=== PATIENT | male | born 1935 | race Hispanic/Latino ===

== ENCOUNTER 2019-01-14 23:54 | Inpatient (IN) | payer MEDICARE ==
[~2019-01-14] VITALS: Ht 172.7 cm; Wt 68.8 kg
[2019-01-14] MEDS ORDERED: ALBUTEROL SULFATE 0.083% 2.5 MG/3 ML INH IH ONE (23:56)
[2019-01-15] MEDS ORDERED: FUROSEMIDE 10 MG/ML 4ML VIAL ONE (00:05)
[2019-01-15 00:25] LABS: BASOPHILS % (AUTO) 0.9 % (0.0-5.0); EOSINOPHILS % (AUTO) 0.5 % (0.0-8.0); LYMPHOCYTES % (AUTO) 12.1 % (21.0-51.0); MEAN CORPUSCULAR HGB CONC 33.4 g/dL (32.0-36.0); MEAN CORPUSCULAR VOLUME 90.1 fL (79-99); MONOCYTES % (AUTO) 4.6 % (3.0-13.0); NEUTROPHILS % (AUTO) 81.9 % (40.0-77.0); PLATELET COUNT (AUTO) 127 K/uL (130-400); RED BLOOD CELL COUNT(AUTO) 4.55 MIL/uL (4.50-6.20); RED CELL DISTRIBUTION WIDTH 17.9 % (11.0-15.5); WHITE BLOOD COUNT (AUTO) 9.8 K/uL (4.8-10.8)
[2019-01-15 00:26] LABS: ABG BASE EXCESS -1.4 mmol/L (-2.0-3.0); ABG HCO3 21.3 mmol/L (21.0-28.0); ABG OXYGEN SATURATION 97.5 % (95.0-99.0); ABG PCO2 31 mmHg (35-48)
[2019-01-15 00:34] LABS: CREATININE 2.3 mg/dL (0.5-1.5)
[2019-01-15 00:36] LABS: INR 1.05 (0.85-1.15); PARTIAL THROMBOPLASTIN TIME 24.3 SEC (26.3-35.5)
[2019-01-15] MEDS ORDERED: ALBUTEROL SULFATE 0.083% 2.5 MG/3 ML INH IH ONE (00:37)
[2019-01-15 01:04] LABS: B-TYPE NATRIURETIC PEPTIDE 1290 pg/mL (0-100)
[2019-01-15 01:10] LABS: APPEARANCE,URINE Clear (CLEAR); BILIRUBIN,URINE Negative (NEGATIVE); COLOR,URINE Yellow (YELLOW); GLUCOSE, URINE (UA) Negative (NEGATIVE); KETONES,URINE Negative (NEGATIVE); LEUKOCYTE ESTERASE ,URINE Negative (NEGATIVE); NITRATE,URINE Negative (NEGATIVE); OCCULT BLOOD,URINE Negative (NEGATIVE); PROTEIN,URINE Negative (NEGATIVE)
[2019-01-15] MEDS ORDERED: NITROGLYCERIN 1GM/1 INCH PACKET TD ONE (01:29)
[2019-01-15 01:32] LABS: ALBUMIN 3.4 g/dL (3.5-5.0); TOTAL PROTEIN, SERUM 7.5 g/dL (6.0-8.3)
[2019-01-15] MEDS ORDERED: ZOSYN 3.375GM+NS 50ML 50 ML IV ONE (01:44)
[2019-01-15] MEDS ORDERED: MORPHINE SULFATE 2 MG/ML 1ML SYG IV PRN (03:45)
[2019-01-15] MEDS ORDERED: VANCOMYCIN PROTOCOL PER PHARMACY IV PRN (03:45)
[2019-01-15] MEDS ORDERED: ACETAMINOPHEN 325 MG TAB PO PRN ×2 (03:45)
[2019-01-15] MEDS ORDERED: PHARMACY COMMUNICATION MISC SCH (03:45)
[2019-01-15] MEDS ORDERED: ZOSYN 3.375GM+NS 50ML 50 ML IV SCH (05:00)
[2019-01-15 05:42] LABS: BASOPHILS % (AUTO) 0.5 % (0.0-5.0); HEMATOCRIT 33.2 % (42-54); LYMPHOCYTES % (AUTO) 8.4 % (21.0-51.0); MEAN CORPUSCULAR HEMOGLOBIN 30.4 pg (27.0-33.0); MEAN CORPUSCULAR HGB CONC 34.3 g/dL (32.0-36.0); MEAN CORPUSCULAR VOLUME 88.9 fL (79-99); MONOCYTES % (AUTO) 3.8 % (3.0-13.0); NEUTROPHILS % (AUTO) 87.3 % (40.0-77.0); PLATELET COUNT (AUTO) 116 K/uL (130-400); RED BLOOD CELL COUNT(AUTO) 3.73 MIL/uL (4.50-6.20); RED CELL DISTRIBUTION WIDTH 16.8 % (11.0-15.5)
[2019-01-15 05:59] LABS: CREATININE 2.3 mg/dL (0.5-1.5); POTASSIUM 3.4 mmol/L (3.5-5.1)
--- NOTE | 2019-01-15 06:00 | NUR ---
patient arrived to room accompanied by family. patient's clear upper lobes and diminished in bases. no cough noted at present. rt to connect patient to by pap. call andre within reach. patient and family orientated to room
[2019-01-15 06:05] LABS: ALBUMIN 2.8 g/dL (3.5-5.0); BILIRUBIN,TOTAL 1.3 mg/dL (0.2-1.0); TOTAL PROTEIN, SERUM 6.6 g/dL (6.0-8.3)
[2019-01-15 06:08] LABS: PLATELET MORPHOLOGY COMMENT LARGE PLTS PRESENT
[2019-01-15 06:34] VITALS: BP 100/64
[2019-01-15] MEDS ORDERED: FLUT1BLS3 IH (06:43)
[2019-01-15] MEDS ORDERED: ASPI-555 PO (06:43)
[2019-01-15] MEDS ORDERED: HYDRALAZINE HCL 20 MG/ML VIAL IM PRN (07:00)
[2019-01-15] MEDS ORDERED: FURO40TA5 PO (07:16)
[2019-01-15] MEDS ORDERED: ATOR10 PO (07:16)
[2019-01-15] MEDS ORDERED: CARV12.511 PO (07:16)
[2019-01-15] MEDS ORDERED: LISI2.5T2 PO (07:16)
[2019-01-15] MEDS ORDERED: CROM40SP12 NS (07:16)
[2019-01-15] MEDS ORDERED: TAMS-1 PO (07:16)
[2019-01-15] MEDS ORDERED: MIRT15TA6 PO (07:16)
[2019-01-15] MEDS ORDERED: CLOP75TA32 PO (07:16)
[2019-01-15] MEDS: INSULIN HUMULIN R 100 UNIT/ML 3ML SQ SCH ×5 (07:30→21:32)
[2019-01-15] MEDS: VANCOMYCIN 1GM+NS 250ML 250 ML IV SCH (08:00)
[2019-01-15] MEDS ORDERED: POTASSIUM CHLORIDE 20MEQ/100ML 100 ML IV PRN (08:15)
[2019-01-15] MEDS ORDERED: POTASSIUM CHLORIDE 10% ELIXIR 20 MEQ/15 ML UDCUP PO PRN (08:15)
[2019-01-15] MEDS ORDERED: LIDOCAINE HCL-MPF 1% 2ML VIAL IV PRN (08:15)
[2019-01-15] MEDS ORDERED: POTASSIUM CHLORIDE 20 MEQ ERTAB PO PRN (08:15)
[2019-01-15 08:30] LABS: ABG BASE EXCESS -0.4 mmol/L (-2.0-3.0); ABG HCO3 22.4 mmol/L (21.0-28.0); ABG OXYGEN SATURATION 99.1 % (95.0-99.0); ABG PCO2 32 mmHg (35-48)
[2019-01-15] MEDS: FAMOTIDINE/PF 20 MG/2 ML VIAL IV SCH (09:00)
[2019-01-15] MEDS ORDERED: FAMOTIDINE/PF 20 MG/2 ML VIAL IV SCH (09:00)
[2019-01-15] MEDS: POTASSIUM CHLORIDE 20 MEQ ERTAB PO SCH ×2 (09:00→21:11)
[2019-01-15] MEDS: FUROSEMIDE 10 MG/ML 2ML VIAL IV SCH ×2 (09:00→21:11)
[2019-01-15] MEDS: ENOXAPARIN SODIUM 30 MG/0.3 ML SQ SCH (09:00)
[2019-01-15] MEDS: ZOSYN 3.375GM+NS 50ML 50 ML IV SCH ×3 (10:00→21:11)
[2019-01-15 12:00] VITALS: BP 106/49
[2019-01-15] MEDS ORDERED: METHYLPREDNISOLONE SOD SUCC 40MG/ML 1ML ONE (12:31)
[2019-01-15] MEDS: IPRATROPIUM/ALBUTEROL SULFATE 3 ML SOLUTION IH SCH ×3 (13:17→23:06)
[2019-01-15] MEDS: ACETYLCYSTEINE 20% 200MG/ML 4ML VIAL IH SCH ×3 (13:17→23:06)
--- NOTE | 2019-01-15 14:00 | NUR ---
cm note met with patient and states resides at home with spouse, pt lives with spouse, neeta jaramillo, pt uses walker, wc, O2 at homecontinueous, and nebulizer, has some home health nurse going unable to recall name of agency. was in hospital in november 2018, in [place], per son, wants to know how to be able to transfer to [facility].. they were here to visit family, and came via private vehicle, informed pt and son and family, that if transfer to [facility] is not for higher level of care, then they would be responsible for the transport cost, also that we would need to get [employer] quotes, as per mds not higher level of care at present. and care can be provided at present hospital. informed that they can verify with their insurance if they have any coverage for the transport, but unable to verify today due to weekend.also informed pt must be medically stable to move to other facility. son verbalizes understanding. per nurse, dr Goldstein was here to round on pt and informed that he recommended he stay here for a couple of days first.
[2019-01-15] MEDS: METHYLPREDNISOLONE SOD SUCC 40MG/ML 1ML IVP SCH ×2 (15:30→23:52)
[2019-01-15 16:00] VITALS: BP 112/42
[2019-01-15 20:02] VITALS: BP 94/47
[2019-01-15] MEDS: INSULIN GLARGINE 100 UNITS/ML 10 ML VIAL SQ SCH ×2 (21:00→21:32)
[2019-01-15] MEDS: ATORVASTATIN CALCIUM 20 MG TABLET PO SCH (21:11)
[2019-01-15] MEDS: MIRTAZAPINE 15 MG TABLET PO SCH (21:12)
[2019-01-15 23:56] VITALS: BP 111/60
[2019-01-16 03:59] VITALS: BP 122/61
[2019-01-16 04:46] LABS: ALBUMIN 2.6 g/dL (3.5-5.0); CREATININE 2.2 mg/dL (0.5-1.5); PHOSPHORUS 2.3 mg/dL (2.5-4.9); POTASSIUM 4.2 mmol/L (3.5-5.1)
[2019-01-16] MEDS: ZOSYN 3.375GM+NS 50ML 50 ML IV SCH ×3 (05:47→22:42)
[2019-01-16] MEDS: METHYLPREDNISOLONE SOD SUCC 40MG/ML 1ML IVP SCH (05:47)
[2019-01-16] MEDS: INSULIN HUMULIN R 100 UNIT/ML 3ML SQ SCH ×4 (05:48→21:00)
[2019-01-16] MEDS: ACETYLCYSTEINE 20% 200MG/ML 4ML VIAL IH SCH ×4 (06:29→23:30)
[2019-01-16] MEDS: IPRATROPIUM/ALBUTEROL SULFATE 3 ML SOLUTION IH SCH ×4 (06:29→23:29)
[2019-01-16 07:08] VITALS: BP 122/61
[2019-01-16 08:21] LABS: BILIRUBIN,DIRECT 0.3 mg/dL (0.0-0.3); BILIRUBIN,TOTAL 1.2 mg/dL (0.2-1.0); TOTAL PROTEIN, SERUM 6.5 g/dL (6.0-8.3)
[2019-01-16] MEDS: LISINOPRIL 2.5 MG TABLET PO SCH (09:21)
[2019-01-16] MEDS: CLOPIDOGREL BISULFATE 75 MG TAB PO SCH (09:21)
[2019-01-16] MEDS: ASPIRIN 81 MG EC TAB PO SCH (09:22)
[2019-01-16] MEDS: POTASSIUM CHLORIDE 20 MEQ ERTAB PO SCH ×2 (09:22→22:36)
[2019-01-16] MEDS: FUROSEMIDE 10 MG/ML 2ML VIAL IV SCH ×2 (09:23→22:37)
[2019-01-16] MEDS: NEUTRA-PHOS PACKET 1 EACH PO SCH ×2 (09:23→14:12)
[2019-01-16] MEDS: FAMOTIDINE/PF 20 MG/2 ML VIAL IV SCH (09:23)
[2019-01-16] MEDS: CARVEDILOL 12.5 MG TABLET PO SCH ×2 (09:26→17:23)
[2019-01-16] MEDS: ENOXAPARIN SODIUM 30 MG/0.3 ML SQ SCH (09:27)
[2019-01-16 10:53] VITALS: BP 118/75
[2019-01-16] MEDS: INSULIN LISPRO 100 UNIT/ML 3ML SQ SCH ×3 (12:36→22:50)
[2019-01-16 15:40] VITALS: BP 125/64
--- NOTE | 2019-01-16 19:30 | NUR ---
PM NOTE Patient resting in bed, no s/s of distress. Patient on nasal canula 2L, family at bedside. Denies pain at this time. Per day shift report and assessment patient has no IV, zosyn to be given at 2100. Will assess for possible IV site. On telemetry patient is v-paced at 66. Call light within reach. Instructed to call for assistance, verbalized understanding.
[2019-01-16 19:36] VITALS: BP 128/68
[2019-01-16] MEDS: MIRTAZAPINE 15 MG TABLET PO SCH (22:36)
[2019-01-16] MEDS: ATORVASTATIN CALCIUM 20 MG TABLET PO SCH (22:36)
[2019-01-16] MEDS: INSULIN GLARGINE 100 UNITS/ML 10 ML VIAL SQ SCH (22:49)
[2019-01-16 23:00] VITALS: BP_SYST 113; BP_SYST 118; BP_DIAS 52; BP_DIAS 62
[2019-01-17] MEDS: NEUTRA-PHOS PACKET 1 EACH PO SCH (00:04)
[2019-01-17 03:56] LABS: BASOPHILS % (AUTO) 0.2 % (0.0-5.0); HEMATOCRIT 31.8 % (42-54); LYMPHOCYTES % (AUTO) 11.5 % (21.0-51.0); MEAN CORPUSCULAR HGB CONC 33.9 g/dL (32.0-36.0); MEAN CORPUSCULAR VOLUME 88.7 fL (79-99); MONOCYTES % (AUTO) 6.8 % (3.0-13.0); NEUTROPHILS % (AUTO) 81.5 % (40.0-77.0); PLATELET COUNT (AUTO) 113 K/uL (130-400); RED BLOOD CELL COUNT(AUTO) 3.59 MIL/uL (4.50-6.20); WHITE BLOOD COUNT (AUTO) 8.8 K/uL (4.8-10.8)
[2019-01-17 03:58] LABS: ABG BASE EXCESS -1.4 mmol/L (-2.0-3.0); ABG HCO3 22.3 mmol/L (21.0-28.0); ABG PCO2 35 mmHg (35-48)
[2019-01-17 04:00] VITALS: BP 110/56
[2019-01-17 04:03] LABS: B-TYPE NATRIURETIC PEPTIDE 1240 pg/mL (0-100)
[2019-01-17 04:10] LABS: CREATININE 2.3 mg/dL (0.5-1.5); PHOSPHORUS 3.7 mg/dL (2.5-4.9); POTASSIUM 4.4 mmol/L (3.5-5.1)
[2019-01-17] MEDS: ZOSYN 3.375GM+NS 50ML 50 ML IV SCH ×3 (05:34→20:58)
[2019-01-17] MEDS: IPRATROPIUM/ALBUTEROL SULFATE 3 ML SOLUTION IH SCH ×5 (06:48→23:15)
[2019-01-17] MEDS: ACETYLCYSTEINE 20% 200MG/ML 4ML VIAL IH SCH ×4 (06:48→23:15)
[2019-01-17] MEDS: INSULIN HUMULIN R 100 UNIT/ML 3ML SQ SCH ×4 (06:56→21:14)
[2019-01-17 07:00] VITALS: BP 115/58
[2019-01-17] MEDS ORDERED: PREDNISONE 20 MG TABLET PO SCH (09:00)
[2019-01-17] MEDS: VANCOMYCIN 1GM+NS 250ML 250 ML IV SCH (09:41)
[2019-01-17] MEDS: FUROSEMIDE 10 MG/ML 2ML VIAL IV SCH ×3 (09:41→20:57)
[2019-01-17] MEDS: ENOXAPARIN SODIUM 30 MG/0.3 ML SQ SCH (09:42)
[2019-01-17] MEDS: LISINOPRIL 2.5 MG TABLET PO SCH (09:42)
[2019-01-17] MEDS: POTASSIUM CHLORIDE 20 MEQ ERTAB PO SCH ×2 (09:45→20:57)
[2019-01-17] MEDS: CLOPIDOGREL BISULFATE 75 MG TAB PO SCH (09:45)
[2019-01-17] MEDS: ASPIRIN 81 MG EC TAB PO SCH (09:45)
[2019-01-17] MEDS: CARVEDILOL 12.5 MG TABLET PO SCH ×2 (09:46→15:59)
[2019-01-17] MEDS: FAMOTIDINE/PF 20 MG/2 ML VIAL IV SCH (09:46)
[2019-01-17 11:02] VITALS: BP 109/56
[2019-01-17] MEDS ORDERED: FUROSEMIDE 10 MG/ML 4ML VIAL IV SCH (11:15)
[2019-01-17] MEDS: INSULIN LISPRO 100 UNIT/ML 3ML SQ SCH ×2 (11:33→16:07)
[2019-01-17] MEDS ORDERED: METHYLPREDNISOLONE SOD SUCC 125MG/2ML VIAL ONE (14:51)
[2019-01-17 15:23] VITALS: BP 112/52
--- NOTE | 2019-01-17 15:53 | NUR ---
DC PLAN FROM CM REPORT. PATIENT LIVES WITH SPOUSE. INDEPENDENT ABLE TO PERFORM ADL'S. PATIENT HAS WALKER, WHEEL CHAIR, O2 AND NEBS. CAME DOWN TO VISIT FROM [place]. FAMILY WANTS TO RETURN. MD TRIED TO TAPER STEROIDS WAS NOT ABLE TO WEAN WILL NEED A LONG TAPER. BENCHMARK AGREED. BOTH MDS SPOKE TO FAMILY. SAID WILL NEED AT LEAST A WEEK OF STEROIDS FOR PATIENT TO IMPROVE. FAMILY ASKED ABOUT SENDING PATIENT TO [place] EXPLAINED THAT I CAN SEND REFERRAL BUT THEY WOULD HAVE TO MAKE ARRANGEMENTS FOR TRANSPORT. INSURANCE WILL NOT TRANSPORT LONG DISTANCE IF THERE IS A CLOSER FACILITY. GAVE OKAY FOR REFERRAL TO [facility]. LET REP KNOW PACKET GIVEN. Addendum: 01/17/19 at 1559 by YARED SANTOS RN CM Amended: Links added.
[2019-01-17] MEDS: METHYLPREDNISOLONE SOD SUCC 125MG/2ML VIAL IVP SCH ×2 (15:59→20:57)
[2019-01-17] MEDS ORDERED: SODIUM CHLORIDE 3% FOR INHALATION 4 ML/AMP VIAL.NEB IH ONE (17:56)
[2019-01-17] MEDS: BUDESONIDE 0.5 MG/2 ML INH IH SCH (18:48)
[2019-01-17 19:00] VITALS: BP 108/50
--- NOTE | 2019-01-17 20:03 | NUR ---
PM NOTE PATIENT RESTING IN BED, ALERT & ORIENTED X3. DENIES PAIN AT THIS TIME. PER FAMILY, PATIENT HAS BEEN MORE TIRED THAN HE WAS YESTERDAY. FAMILY STATES PATIENT GETS SHORT OF BREATH WHEN AMBULATING. PATIENT IN NO DISTRESS AT THIS TIME. HE IS ON 2L NASAL CANULA. ON TELEMETRY PATIENT IS PACED AT 61. CALL LIGHT WITHIN REACH. INSTRUCTED TO CALL FOR ASSISTANCE, VERBALIZED UNDERSTANDING. FAMILY AT BEDSIDE. SIDE RAILS UP X2.
[2019-01-17] MEDS: MIRTAZAPINE 15 MG TABLET PO SCH (20:56)
[2019-01-17] MEDS: ATORVASTATIN CALCIUM 20 MG TABLET PO SCH (20:56)
[2019-01-17] MEDS: INSULIN GLARGINE 100 UNITS/ML 10 ML VIAL SQ SCH (21:15)
[2019-01-17 23:00] VITALS: BP 102/42
[2019-01-18] MEDS: METHYLPREDNISOLONE SOD SUCC 125MG/2ML VIAL IVP SCH ×4 (03:40→20:20)
[2019-01-18 04:00] VITALS: BP 107/60
[2019-01-18 04:19] LABS: BASOPHILS % (AUTO) 0.1 % (0.0-5.0); HEMATOCRIT 33.8 % (42-54); LYMPHOCYTES % (AUTO) 13.2 % (21.0-51.0); MEAN CORPUSCULAR HEMOGLOBIN 29.9 pg (27.0-33.0); MEAN CORPUSCULAR HGB CONC 33.7 g/dL (32.0-36.0); MEAN CORPUSCULAR VOLUME 88.7 fL (79-99); MONOCYTES % (AUTO) 1.7 % (3.0-13.0); NUCLEATED RED BLOOD CELLS 0.1 % (0.0-0.19); PLATELET COUNT (AUTO) 114 K/uL (130-400); RED BLOOD CELL COUNT(AUTO) 3.81 MIL/uL (4.50-6.20); RED CELL DISTRIBUTION WIDTH 17.2 % (11.0-15.5); WHITE BLOOD COUNT (AUTO) 5.1 K/uL (4.8-10.8)
[2019-01-18 04:29] LABS: CREATININE 2.6 mg/dL (0.5-1.5); POTASSIUM 4.1 mmol/L (3.5-5.1)
[2019-01-18 04:44] LABS: B-TYPE NATRIURETIC PEPTIDE 1080 pg/mL (0-100)
[2019-01-18] MEDS: ZOSYN 3.375GM+NS 50ML 50 ML IV SCH ×3 (04:47→20:08)
[2019-01-18] MEDS: IPRATROPIUM/ALBUTEROL SULFATE 3 ML SOLUTION IH SCH ×7 (06:00→23:39)
[2019-01-18] MEDS: INSULIN LISPRO 100 UNIT/ML 3ML SQ SCH ×3 (06:23→17:28)
[2019-01-18] MEDS: INSULIN HUMULIN R 100 UNIT/ML 3ML SQ SCH ×4 (06:24→20:26)
[2019-01-18] MEDS: ACETYLCYSTEINE 20% 200MG/ML 4ML VIAL IH SCH ×4 (06:41→23:39)
[2019-01-18] MEDS: BUDESONIDE 0.5 MG/2 ML INH IH SCH ×2 (06:41→18:34)
[2019-01-18 07:31] VITALS: BP 127/63
[2019-01-18 09:21] LABS: HEMATOCRIT 35.1 % (42-54); MEAN CORPUSCULAR HEMOGLOBIN 30.2 pg (27.0-33.0); MEAN CORPUSCULAR HGB CONC 33.5 g/dL (32.0-36.0); NUCLEATED RED BLOOD CELLS 0.1 % (0.0-0.19); PLATELET COUNT (AUTO) 110 K/uL (130-400); RED CELL DISTRIBUTION WIDTH 17.1 % (11.0-15.5); WHITE BLOOD COUNT (AUTO) 6.3 K/uL (4.8-10.8)
[2019-01-18] MEDS: CARVEDILOL 12.5 MG TABLET PO SCH ×2 (09:28→16:58)
[2019-01-18] MEDS: LISINOPRIL 2.5 MG TABLET PO SCH (09:28)
[2019-01-18 09:29] LABS: CREATININE 2.5 mg/dL (0.5-1.5); POTASSIUM 4.3 mmol/L (3.5-5.1)
[2019-01-18] MEDS: CLOPIDOGREL BISULFATE 75 MG TAB PO SCH (09:29)
[2019-01-18] MEDS: ASPIRIN 81 MG EC TAB PO SCH (09:29)
[2019-01-18] MEDS: POTASSIUM CHLORIDE 20 MEQ ERTAB PO SCH ×2 (09:29→20:09)
[2019-01-18] MEDS: FUROSEMIDE 10 MG/ML 2ML VIAL IV SCH ×3 (09:30→20:17)
[2019-01-18] MEDS: FAMOTIDINE/PF 20 MG/2 ML VIAL IV SCH (09:30)
[2019-01-18] MEDS: ENOXAPARIN SODIUM 30 MG/0.3 ML SQ SCH (09:30)
[2019-01-18 12:00] VITALS: BP 113/57
[2019-01-18 15:21] VITALS: BP 126/64
[2019-01-18 19:00] VITALS: BP_SYST 118; BP_SYST 142; BP_DIAS 64; BP_DIAS 69
[2019-01-18] MEDS: MIRTAZAPINE 15 MG TABLET PO SCH (20:08)
[2019-01-18] MEDS: ATORVASTATIN CALCIUM 20 MG TABLET PO SCH (20:09)
[2019-01-18] MEDS: INSULIN GLARGINE 100 UNITS/ML 10 ML VIAL SQ SCH (20:16)
[2019-01-18 23:46] VITALS: BP 142/69
[2019-01-19] MEDS: METHYLPREDNISOLONE SOD SUCC 125MG/2ML VIAL IVP SCH ×4 (02:09→21:55)
[2019-01-19 04:00] VITALS: BP 91/56
[2019-01-19 04:06] LABS: HEMATOCRIT 35.1 % (42-54); MEAN CORPUSCULAR HEMOGLOBIN 29.5 pg (27.0-33.0); MEAN CORPUSCULAR HGB CONC 32.9 g/dL (32.0-36.0); MEAN CORPUSCULAR VOLUME 89.5 fL (79-99); PLATELET COUNT (AUTO) 101 K/uL (130-400); RED BLOOD CELL COUNT(AUTO) 3.92 MIL/uL (4.50-6.20); RED CELL DISTRIBUTION WIDTH 16.5 % (11.0-15.5); WHITE BLOOD COUNT (AUTO) 6.9 K/uL (4.8-10.8)
[2019-01-19 04:15] LABS: CREATININE 2.5 mg/dL (0.5-1.5); POTASSIUM 4.2 mmol/L (3.5-5.1)
[2019-01-19] MEDS: FUROSEMIDE 10 MG/ML 2ML VIAL IV SCH ×3 (05:13→21:54)
[2019-01-19] MEDS: ZOSYN 3.375GM+NS 50ML 50 ML IV SCH ×3 (05:14→21:54)
[2019-01-19 07:24] VITALS: BP 117/67
[2019-01-19] MEDS: BUDESONIDE 0.5 MG/2 ML INH IH SCH ×2 (07:24→18:53)
[2019-01-19] MEDS: IPRATROPIUM/ALBUTEROL SULFATE 3 ML SOLUTION IH SCH ×5 (07:24→23:53)
[2019-01-19] MEDS: ACETYLCYSTEINE 20% 200MG/ML 4ML VIAL IH SCH ×4 (07:25→23:53)
[2019-01-19] MEDS ORDERED: PREDNISONE 10 MG TABLET PO SCH (09:00)
[2019-01-19] MEDS: ENOXAPARIN SODIUM 30 MG/0.3 ML SQ SCH (09:00)
[2019-01-19] MEDS: FAMOTIDINE/PF 20 MG/2 ML VIAL IV SCH (09:22)
[2019-01-19] MEDS: ASPIRIN 81 MG EC TAB PO SCH (09:38)
[2019-01-19] MEDS: LISINOPRIL 2.5 MG TABLET PO SCH (09:38)
[2019-01-19] MEDS: CLOPIDOGREL BISULFATE 75 MG TAB PO SCH (09:39)
[2019-01-19] MEDS: CARVEDILOL 12.5 MG TABLET PO SCH ×2 (09:39→17:00)
[2019-01-19] MEDS: POTASSIUM CHLORIDE 20 MEQ ERTAB PO SCH ×2 (09:40→21:55)
[2019-01-19] MEDS: VANCOMYCIN 1GM+NS 250ML 250 ML IV SCH (09:40)
[2019-01-19] MEDS: INSULIN HUMULIN R 100 UNIT/ML 3ML SQ SCH ×4 (09:54→22:08)
[2019-01-19] MEDS: INSULIN LISPRO 100 UNIT/ML 3ML SQ SCH ×4 (09:55→17:22)
[2019-01-19 11:09] VITALS: BP 93/52
[2019-01-19] MEDS ORDERED: SODIUM CHLORIDE 0.9% 250 ML IV ONE (13:07)
[2019-01-19 15:13] VITALS: BP 123/59
--- NOTE | 2019-01-19 17:25 | NUR ---
BLOOD SUGARS Patient has been having elevated blood sugars in the 300s, 400s. Nurse Practitioner Mandi Kemp was updated during rounds and is aware. She spoke to family and to patient and emphasized no food from outside. Family verbalized understanding.
[2019-01-19 19:39] VITALS: BP 112/61
--- NOTE | 2019-01-19 20:06 | NUR ---
ASSESSMENT PATIENT IS RESTING IN BED. ALERT AND ORIENTED X4. FAMILY IS AT BEDSIDE. NO COMPLAINTS OF PAIN. NO SIGNS OF DISTRESS. NO SHORTNESS OF BREATH. PATIENT IS ON 02 @2L. CALL LIGHT IS WITHIN REACH. BEDSIDE AT WITHIN REACH. NO QUESTIONS, CONCERNS, OR NEEDS AT THIS TIME.
[2019-01-19] MEDS: ATORVASTATIN CALCIUM 20 MG TABLET PO SCH (21:55)
[2019-01-19] MEDS: MIRTAZAPINE 15 MG TABLET PO SCH (21:55)
[2019-01-19] MEDS: INSULIN GLARGINE 100 UNITS/ML 10 ML VIAL SQ SCH (22:06)
[2019-01-19 23:21] VITALS: BP 133/71
--- NOTE | 2019-01-20 | NUR ---
ASSESSMENT PATIENT IS RESTING IN BED. FAMILY IS AT BEDSIDE. NO COMPLAINTS OF PAIN. NO SIGNS OF DISTRESS. NO SHORTNESS OF BREATH. CALL LIGHT, BEDSIDE TABLE WITHIN REACH. NO QUESTIONS, CONCERNS, OR NEEDS AT THIS TIME.
[2019-01-20] MEDS: METHYLPREDNISOLONE SOD SUCC 125MG/2ML VIAL IVP SCH ×4 (03:29→20:54)
[2019-01-20 03:56] VITALS: BP 121/69
[2019-01-20 04:00] LABS: HEMATOCRIT 36.4 % (42-54); MEAN CORPUSCULAR HEMOGLOBIN 30.1 pg (27.0-33.0); MEAN CORPUSCULAR HGB CONC 33.8 g/dL (32.0-36.0); PLATELET COUNT (AUTO) 123 K/uL (130-400); RED BLOOD CELL COUNT(AUTO) 4.09 MIL/uL (4.50-6.20); RED CELL DISTRIBUTION WIDTH 16.4 % (11.0-15.5); WHITE BLOOD COUNT (AUTO) 8.6 K/uL (4.8-10.8)
[2019-01-20 04:06] LABS: CREATININE 2.4 mg/dL (0.5-1.5); POTASSIUM 3.9 mmol/L (3.5-5.1)
--- NOTE | 2019-01-20 05:41 | NUR ---
ASSESSMENT PATIENT IS RESTING IN BED. FAMILY CONTINUES AT BEDSIDE. NO COMPLAINTS OF PAIN. NO SIGNS OF DISTRESS. NO SHORTNESS OF BREATH. PATIENT IS VOIDING VIA URINAL WITH NO COMPLAINTS. PATIENTS CALL LIGHT IS WITHIN REACH. NO NEEDS VOICED AT THIS TIME.
[2019-01-20] MEDS: FUROSEMIDE 10 MG/ML 2ML VIAL IV SCH (06:27)
[2019-01-20] MEDS: INSULIN HUMULIN R 100 UNIT/ML 3ML SQ SCH ×3 (06:27→21:14)
[2019-01-20] MEDS: ZOSYN 3.375GM+NS 50ML 50 ML IV SCH ×3 (06:27→20:53)
[2019-01-20] MEDS: INSULIN LISPRO 100 UNIT/ML 3ML SQ SCH ×3 (06:28→17:13)
[2019-01-20 07:05] VITALS: BP 112/56
[2019-01-20] MEDS: ACETYLCYSTEINE 20% 200MG/ML 4ML VIAL IH SCH ×4 (07:07→23:31)
[2019-01-20] MEDS: BUDESONIDE 0.5 MG/2 ML INH IH SCH ×2 (07:08→19:00)
[2019-01-20] MEDS: IPRATROPIUM/ALBUTEROL SULFATE 3 ML SOLUTION IH SCH ×4 (07:08→23:31)
[2019-01-20] MEDS: ASPIRIN 81 MG EC TAB PO SCH (08:55)
[2019-01-20] MEDS: CARVEDILOL 12.5 MG TABLET PO SCH ×2 (08:55→17:05)
[2019-01-20] MEDS: LISINOPRIL 2.5 MG TABLET PO SCH (08:56)
[2019-01-20] MEDS: CLOPIDOGREL BISULFATE 75 MG TAB PO SCH (08:56)
[2019-01-20] MEDS: FAMOTIDINE/PF 20 MG/2 ML VIAL IV SCH (08:56)
[2019-01-20] MEDS: ENOXAPARIN SODIUM 30 MG/0.3 ML SQ SCH (08:57)
[2019-01-20] MEDS: POTASSIUM CHLORIDE 20 MEQ ERTAB PO SCH ×2 (08:57→20:54)
[2019-01-20 11:10] VITALS: BP 103/54
--- NOTE | 2019-01-20 14:16 | NUR ---
RD NOTIFICATION RD CONSULTS DUE TO LOS X 5. DIET: HEART HEALTHY. PO INTAKE 75% AND HAS GOOD APPETITE PER FAMILY. NO DIFFICULTIES CHEWING OR SWALLOWING. LBM: 01/18 PER FAMILY. RECOMMENDATIONS: ADD RENAL NON-DIALYSIS AND FLUID RESTRICTION TO DIET ORDER MONITOR LABS AND PO INTAKE RD WILL CONTINUE TO FOLLOW UP Addendum: 01/20/19 at [address] Amended: Links added.
[2019-01-20 15:39] VITALS: BP 95/56
--- NOTE | 2019-01-20 19:29 | NUR ---
ASSESSMENT PATIENT IS RESTING IN BED. FAMILY AT BEDSIDE. ALERT AND ORIENTED X4. NO COMPLAINTS OF PAIN. NO SIGNS OF DISTRESS. NO SHORTNESS OF BREATH. CURRENTLY RUNNING A BREATHING TREATMENT WITH NO COMPLAINTS. CALL LIGHT, BEDSIDE TABLE, URINAL WITHIN REACH. NO QUESTIONS, CONCERNS, OR NEEDS AT THIS TIME. REINFORCED PATIENT TO CALL FOR ANY NEEDS.
[2019-01-20 20:06] VITALS: BP 112/58
[2019-01-20] MEDS: MIRTAZAPINE 15 MG TABLET PO SCH (20:54)
[2019-01-20] MEDS: ATORVASTATIN CALCIUM 20 MG TABLET PO SCH (20:54)
[2019-01-20] MEDS: INSULIN GLARGINE 100 UNITS/ML 10 ML VIAL SQ SCH (21:17)
[2019-01-21] VITALS (7 sets, daily range): BP systolic 97–127; BP diastolic 44–66
[2019-01-21] MEDS: METHYLPREDNISOLONE SOD SUCC 125MG/2ML VIAL IVP SCH ×3 (02:53→15:30)
[2019-01-21 03:54] LABS: HEMATOCRIT 36.3 % (42-54); MEAN CORPUSCULAR HEMOGLOBIN 29.5 pg (27.0-33.0); MEAN CORPUSCULAR HGB CONC 33.2 g/dL (32.0-36.0); MEAN CORPUSCULAR VOLUME 88.8 fL (79-99); PLATELET COUNT (AUTO) 117 K/uL (130-400); RED BLOOD CELL COUNT(AUTO) 4.09 MIL/uL (4.50-6.20); RED CELL DISTRIBUTION WIDTH 16.5 % (11.0-15.5); WHITE BLOOD COUNT (AUTO) 10.2 K/uL (4.8-10.8)
[2019-01-21 03:58] LABS: CREATININE 2.6 mg/dL (0.5-1.5); POTASSIUM 4.2 mmol/L (3.5-5.1)
[2019-01-21] MEDS: ACETYLCYSTEINE 20% 200MG/ML 4ML VIAL IH SCH ×4 (06:17→23:09)
[2019-01-21] MEDS: IPRATROPIUM/ALBUTEROL SULFATE 3 ML SOLUTION IH SCH ×4 (06:17→23:09)
[2019-01-21] MEDS: BUDESONIDE 0.5 MG/2 ML INH IH SCH ×2 (06:17→18:32)
[2019-01-21] MEDS: ZOSYN 3.375GM+NS 50ML 50 ML IV SCH ×3 (06:49→21:22)
[2019-01-21] MEDS: INSULIN HUMULIN R 100 UNIT/ML 3ML SQ SCH ×4 (06:49→21:34)
[2019-01-21] MEDS: INSULIN LISPRO 100 UNIT/ML 3ML SQ SCH ×3 (08:08→17:06)
[2019-01-21] MEDS: CARVEDILOL 12.5 MG TABLET PO SCH ×2 (08:24→17:03)
[2019-01-21] MEDS: VANCOMYCIN 1GM+NS 250ML 250 ML IV SCH (08:24)
[2019-01-21] MEDS ORDERED: FUROSEMIDE 40 MG TABLET PO SCH (09:00)
[2019-01-21] MEDS ORDERED: PREDNISONE 20 MG TABLET PO SCH (09:00)
[2019-01-21] MEDS: LISINOPRIL 2.5 MG TABLET PO SCH (10:11)
[2019-01-21] MEDS: ASPIRIN 81 MG EC TAB PO SCH (10:11)
[2019-01-21] MEDS: CLOPIDOGREL BISULFATE 75 MG TAB PO SCH (10:12)
[2019-01-21] MEDS: POTASSIUM CHLORIDE 20 MEQ ERTAB PO SCH ×2 (10:12→21:22)
[2019-01-21] MEDS: ENOXAPARIN SODIUM 30 MG/0.3 ML SQ SCH (10:13)
[2019-01-21] MEDS: FAMOTIDINE/PF 20 MG/2 ML VIAL IV SCH (10:14)
[2019-01-21] MEDS ORDERED: ACETYLCYSTEINE 10% 100MG/ML 4ML VIAL IH SCH (12:00)
[2019-01-21] MEDS: MIRTAZAPINE 15 MG TABLET PO SCH (21:21)
[2019-01-21] MEDS: ATORVASTATIN CALCIUM 20 MG TABLET PO SCH (21:22)
[2019-01-21] MEDS: INSULIN GLARGINE 100 UNITS/ML 10 ML VIAL SQ SCH (21:35)
[2019-01-22 00:35] VITALS: BP 122/50
[2019-01-22] MEDS: METHYLPREDNISOLONE SOD SUCC 125MG/2ML VIAL IVP SCH ×4 (01:00→21:42)
[2019-01-22 03:33] VITALS: BP 118/74
[2019-01-22 03:44] LABS: HEMATOCRIT 35.4 % (42-54); MEAN CORPUSCULAR HEMOGLOBIN 29.6 pg (27.0-33.0); MEAN CORPUSCULAR HGB CONC 33.4 g/dL (32.0-36.0); MEAN CORPUSCULAR VOLUME 88.5 fL (79-99); PLATELET COUNT (AUTO) 117 K/uL (130-400); RED CELL DISTRIBUTION WIDTH 16.8 % (11.0-15.5); WHITE BLOOD COUNT (AUTO) 8.5 K/uL (4.8-10.8)
[2019-01-22 03:53] LABS: CREATININE 2.1 mg/dL (0.5-1.5); POTASSIUM 4.4 mmol/L (3.5-5.1)
[2019-01-22] MEDS: ZOSYN 3.375GM+NS 50ML 50 ML IV SCH ×3 (06:12→21:44)
[2019-01-22] MEDS: IPRATROPIUM/ALBUTEROL SULFATE 3 ML SOLUTION IH SCH ×4 (06:33→23:35)
[2019-01-22] MEDS: ACETYLCYSTEINE 20% 200MG/ML 4ML VIAL IH SCH ×4 (06:33→23:35)
[2019-01-22] MEDS: BUDESONIDE 0.5 MG/2 ML INH IH SCH ×2 (06:33→18:23)
[2019-01-22] MEDS: INSULIN HUMULIN R 100 UNIT/ML 3ML SQ SCH ×4 (06:43→21:00)
[2019-01-22] MEDS: INSULIN LISPRO 100 UNIT/ML 3ML SQ SCH ×3 (07:11→17:17)
[2019-01-22 07:57] VITALS: BP 121/64
[2019-01-22] MEDS: CARVEDILOL 12.5 MG TABLET PO SCH ×2 (08:12→17:15)
[2019-01-22] MEDS: LISINOPRIL 2.5 MG TABLET PO SCH (08:44)
[2019-01-22] MEDS: ASPIRIN 81 MG EC TAB PO SCH (08:44)
[2019-01-22] MEDS: CLOPIDOGREL BISULFATE 75 MG TAB PO SCH (08:44)
[2019-01-22] MEDS: FAMOTIDINE/PF 20 MG/2 ML VIAL IV SCH (08:44)
[2019-01-22] MEDS: POTASSIUM CHLORIDE 20 MEQ ERTAB PO SCH ×2 (08:45→21:43)
[2019-01-22] MEDS: FUROSEMIDE 40 MG TABLET PO SCH (08:45)
[2019-01-22] MEDS: ENOXAPARIN SODIUM 30 MG/0.3 ML SQ SCH (08:46)
[2019-01-22 12:12] VITALS: BP 115/59
[2019-01-22 15:36] VITALS: BP 112/55
[2019-01-22 19:58] VITALS: BP 91/47
[2019-01-22] MEDS: INSULIN GLARGINE 100 UNITS/ML 10 ML VIAL SQ SCH (21:37)
[2019-01-22] MEDS: ATORVASTATIN CALCIUM 20 MG TABLET PO SCH (21:42)
[2019-01-22] MEDS: MIRTAZAPINE 15 MG TABLET PO SCH (21:42)
[2019-01-23] VITALS (7 sets, daily range): BP systolic 105–118; BP diastolic 50–62
[2019-01-23 04:21] LABS: HEMATOCRIT 37.1 % (42-54); MEAN CORPUSCULAR HEMOGLOBIN 29.4 pg (27.0-33.0); MEAN CORPUSCULAR HGB CONC 32.8 g/dL (32.0-36.0); MEAN CORPUSCULAR VOLUME 89.6 fL (79-99); PLATELET COUNT (AUTO) 110 K/uL (130-400); RED BLOOD CELL COUNT(AUTO) 4.15 MIL/uL (4.50-6.20); RED CELL DISTRIBUTION WIDTH 16.8 % (11.0-15.5); WHITE BLOOD COUNT (AUTO) 6.7 K/uL (4.8-10.8)
[2019-01-23 04:38] LABS: CREATININE 2.2 mg/dL (0.5-1.5); POTASSIUM 5.2 mmol/L (3.5-5.1)
[2019-01-23] MEDS: ZOSYN 3.375GM+NS 50ML 50 ML IV SCH ×3 (05:03→20:36)
[2019-01-23] MEDS: METHYLPREDNISOLONE SOD SUCC 125MG/2ML VIAL IVP SCH (07:10)
[2019-01-23] MEDS: INSULIN HUMULIN R 100 UNIT/ML 3ML SQ SCH ×4 (07:11→21:30)
[2019-01-23] MEDS: INSULIN LISPRO 100 UNIT/ML 3ML SQ SCH ×3 (07:12→17:41)
[2019-01-23] MEDS: IPRATROPIUM/ALBUTEROL SULFATE 3 ML SOLUTION IH SCH ×4 (07:23→23:13)
[2019-01-23] MEDS: ACETYLCYSTEINE 20% 200MG/ML 4ML VIAL IH SCH (07:24)
[2019-01-23 07:37] LABS: POTASSIUM 5.3 mmol/L (3.5-5.1)
[2019-01-23] MEDS: BUDESONIDE 0.5 MG/2 ML INH IH SCH ×2 (07:46→18:28)
[2019-01-23] MEDS: POTASSIUM CHLORIDE 20 MEQ ERTAB PO SCH ×2 (09:00→20:36)
[2019-01-23] MEDS ORDERED: PREDNISONE 10 MG TABLET PO SCH (09:00)
[2019-01-23] MEDS ORDERED: METHYLPREDNISOLONE SOD SUCC 40MG/ML 1ML ONE ×2 (11:13→16:51)
[2019-01-23] MEDS ORDERED: SODIUM CHLORIDE 0.9% 250 ML IV ONE (11:16)
[2019-01-23] MEDS: FAMOTIDINE/PF 20 MG/2 ML VIAL IV SCH (11:26)
[2019-01-23] MEDS: FUROSEMIDE 40 MG TABLET PO SCH (11:27)
[2019-01-23] MEDS: CARVEDILOL 12.5 MG TABLET PO SCH ×2 (11:27→17:39)
[2019-01-23] MEDS: ENOXAPARIN SODIUM 30 MG/0.3 ML SQ SCH (11:28)
[2019-01-23] MEDS: CLOPIDOGREL BISULFATE 75 MG TAB PO SCH (11:28)
[2019-01-23] MEDS: LISINOPRIL 2.5 MG TABLET PO SCH (11:28)
[2019-01-23] MEDS: VANCOMYCIN 1GM+NS 250ML 250 ML IV SCH (11:29)
[2019-01-23] MEDS: ASPIRIN 81 MG EC TAB PO SCH (11:34)
[2019-01-23] MEDS ORDERED: METHYLPREDNISOLONE SOD SUCC 125MG/2ML VIAL IVP SCH (12:00)
[2019-01-23] MEDS: METHYLPREDNISOLONE SOD SUCC 40MG/ML 1ML IVP SCH (17:42)
[2019-01-23] MEDS: ATORVASTATIN CALCIUM 20 MG TABLET PO SCH (20:36)
[2019-01-23] MEDS: MIRTAZAPINE 15 MG TABLET PO SCH (20:36)
[2019-01-23] MEDS: INSULIN GLARGINE 100 UNITS/ML 10 ML VIAL SQ SCH (21:29)
[2019-01-24] MEDS: METHYLPREDNISOLONE SOD SUCC 40MG/ML 1ML IVP SCH ×5 (00:55→21:44)
[2019-01-24 03:52] LABS: BASOPHILS % (AUTO) 0.2 % (0.0-5.0); HEMATOCRIT 35.8 % (42-54); LYMPHOCYTES % (AUTO) 8.1 % (21.0-51.0); MEAN CORPUSCULAR HEMOGLOBIN 29.6 pg (27.0-33.0); MEAN CORPUSCULAR HGB CONC 33.6 g/dL (32.0-36.0); MEAN CORPUSCULAR VOLUME 88.2 fL (79-99); NEUTROPHILS % (AUTO) 84.7 % (40.0-77.0); PLATELET COUNT (AUTO) 134 K/uL (130-400); RED BLOOD CELL COUNT(AUTO) 4.05 MIL/uL (4.50-6.20); RED CELL DISTRIBUTION WIDTH 16.5 % (11.0-15.5); WHITE BLOOD COUNT (AUTO) 9.9 K/uL (4.8-10.8)
[2019-01-24 03:53] VITALS: BP 126/61
[2019-01-24 04:01] LABS: CREATININE 2.1 mg/dL (0.5-1.5); POTASSIUM 4.5 mmol/L (3.5-5.1)
[2019-01-24] MEDS: ZOSYN 3.375GM+NS 50ML 50 ML IV SCH ×3 (04:57→20:05)
[2019-01-24] MEDS: INSULIN HUMULIN R 100 UNIT/ML 3ML SQ SCH ×4 (05:44→21:03)
[2019-01-24] MEDS: INSULIN LISPRO 100 UNIT/ML 3ML SQ SCH ×3 (06:15→17:49)
[2019-01-24 07:00] VITALS: BP 123/66
[2019-01-24] MEDS: BUDESONIDE 0.5 MG/2 ML INH IH SCH ×2 (07:12→18:13)
[2019-01-24] MEDS: IPRATROPIUM/ALBUTEROL SULFATE 3 ML SOLUTION IH SCH ×4 (07:12→23:32)
[2019-01-24] MEDS: POTASSIUM CHLORIDE 20 MEQ ERTAB PO SCH ×2 (09:00→20:06)
[2019-01-24] MEDS: ENOXAPARIN SODIUM 30 MG/0.3 ML SQ SCH (09:58)
[2019-01-24] MEDS: FUROSEMIDE 40 MG TABLET PO SCH (09:58)
[2019-01-24] MEDS: FAMOTIDINE/PF 20 MG/2 ML VIAL IV SCH (09:58)
[2019-01-24] MEDS: CLOPIDOGREL BISULFATE 75 MG TAB PO SCH (09:59)
[2019-01-24] MEDS: ASPIRIN 81 MG EC TAB PO SCH (09:59)
[2019-01-24] MEDS: LISINOPRIL 2.5 MG TABLET PO SCH (09:59)
[2019-01-24] MEDS: CARVEDILOL 12.5 MG TABLET PO SCH ×2 (09:59→17:50)
[2019-01-24 11:00] VITALS: BP 108/56
--- NOTE | 2019-01-24 13:32 | NUR ---
MILLICENT Plan Followed up on auth with Elyse (covering for Chelsi) with [employer]. Per Elyse, insurance has requested more information which has been sent this morning. CM to continue to follow. CD Addendum: 01/24/19 at 1333 by ROSCOE DOWELL CM Amended: Links added.
[2019-01-24 15:00] VITALS: BP 117/63
[2019-01-24 19:00] VITALS: BP 122/64
[2019-01-24] MEDS: MIRTAZAPINE 15 MG TABLET PO SCH (20:05)
[2019-01-24] MEDS: ATORVASTATIN CALCIUM 20 MG TABLET PO SCH (20:05)
[2019-01-24] MEDS: INSULIN GLARGINE 100 UNITS/ML 10 ML VIAL SQ SCH (21:04)
[2019-01-24 23:37] VITALS: BP 119/50
[2019-01-25 04:00] VITALS: BP 111/56
[2019-01-25] MEDS: METHYLPREDNISOLONE SOD SUCC 40MG/ML 1ML IVP SCH (05:00)
[2019-01-25] MEDS: ZOSYN 3.375GM+NS 50ML 50 ML IV SCH (05:00)
[2019-01-25] MEDS: IPRATROPIUM/ALBUTEROL SULFATE 3 ML SOLUTION IH SCH ×2 (06:06→11:12)
[2019-01-25] MEDS: INSULIN HUMULIN R 100 UNIT/ML 3ML SQ SCH ×2 (06:09→11:44)
[2019-01-25] MEDS: INSULIN LISPRO 100 UNIT/ML 3ML SQ SCH ×2 (06:10→11:44)
[2019-01-25] MEDS: BUDESONIDE 0.5 MG/2 ML INH IH SCH (06:19)
[2019-01-25] MEDS: ENOXAPARIN SODIUM 30 MG/0.3 ML SQ SCH (07:46)
[2019-01-25] MEDS: CLOPIDOGREL BISULFATE 75 MG TAB PO SCH (07:46)
[2019-01-25] MEDS: ASPIRIN 81 MG EC TAB PO SCH (07:46)
[2019-01-25] MEDS: FAMOTIDINE/PF 20 MG/2 ML VIAL IV SCH (07:46)
[2019-01-25] MEDS: CARVEDILOL 12.5 MG TABLET PO SCH (07:48)
[2019-01-25 07:50] VITALS: BP 134/64
[2019-01-25] MEDS: FUROSEMIDE 40 MG TABLET PO SCH (07:51)
[2019-01-25] MEDS: POTASSIUM CHLORIDE 20 MEQ ERTAB PO SCH (07:51)
[2019-01-25] MEDS: LISINOPRIL 2.5 MG TABLET PO SCH (07:52)
[2019-01-25] MEDS ORDERED: PREDNISONE 5 MG TABLET PO SCH (09:00)
[2019-01-25 11:40] VITALS: BP 106/59
[2019-01-25] MEDS ORDERED: IPRA3AMP24 IH (12:10)
--- NOTE | 2019-01-25 13:15 | NUR ---
Hansa CONTRERAS rounded and reviewed plan of care for the day. Ok patient to be discharged home. Discharge instructions/education, and medication were given to the son Nam. all questions were answered.
[2019-01-27] MEDS ORDERED: PREDNISONE 5 MG TABLET PO SCH (09:00)
== END 2019-01-25 13:25 | disposition home or self-care (01) | DRG 177 ==
LOC: EDH 23:54 → EDHIP 01-15 03:43 → 2DH 01-15 05:39
PROVIDERS: ADMIT Internal Medicine; ATTEND Internal Medicine
PROC: 5A09357 Assistance with Respiratory Ventilation, Less than 24 Consecutive Hours, Continuous Positive Airway Pressure (ICD-10-PCS; principal; 2019-01-15)
DX: J15.0 Pneumonia due to Klebsiella pneumoniae (principal); I50.43 Acute on chronic combined systolic (congestive) and diastolic (congestive) heart failure; J96.21 Acute and chronic respiratory failure with hypoxia; J44.0 Chronic obstructive pulmonary disease with (acute) lower respiratory infection; N17.9 Acute kidney failure, unspecified; N18.4 Chronic kidney disease, stage 4 (severe); I13.0 Hypertensive heart and chronic kidney disease with heart failure and stage 1 through stage 4 chronic kidney disease, or unspecified chronic kidney disease; J44.1 Chronic obstructive pulmonary disease with (acute) exacerbation; T50.2X5A Adverse effect of carbonic-anhydrase inhibitors, benzothiadiazides and other diuretics, initial encounter; E87.6 Hypokalemia; E87.5 Hyperkalemia; J15.212 Pneumonia due to Methicillin resistant Staphylococcus aureus; I25.10 Atherosclerotic heart disease of native coronary artery without angina pectoris; J84.10 Pulmonary fibrosis, unspecified; E87.8 Other disorders of electrolyte and fluid balance, not elsewhere classified; E11.22 Type 2 diabetes mellitus with diabetic chronic kidney disease; F03.90 Unspecified dementia, unspecified severity, without behavioral disturbance, psychotic disturbance, mood disturbance, and anxiety; Z87.891 Personal history of nicotine dependence; Z95.5 Presence of coronary angioplasty implant and graft; Z95.0 Presence of cardiac pacemaker; Z79.899 Other long term (current) drug therapy; Z87.01 Personal history of pneumonia (recurrent); Z79.4 Long term (current) use of insulin; Z79.82 Long term (current) use of aspirin; Z79.02 Long term (current) use of antithrombotics/antiplatelets; Y92.89 Other specified places as the place of occurrence of the external cause
CPT/HCPCS: 36415; 36600; 71045; 71046; 71250; 76770; 78582; 80048; 80053; 80069; 80076; 80202; 81003; 82550; 82803; 82947; 82948; 83735; 83880; 84100; 84132; 84145; 84484; 85025; 85027; 85610; 85730; 87040; 87071; 87077; 87186; 87205; 87486; 87581; 87633; 87798; 87804; 93005; 93306; 94640; 94644; 94660; 94664; 94667; 94668; 97039; 99291; A9540; A9558; G0378; J1650; J1815; J1940; J2543; J2920; J2930; J3370; J3490; J7030; J7608